=== PATIENT | female | born 1985 | race Caucasian/White ===

== ENCOUNTER 2025-07-27 15:54 | Emergency (ER) | payer OTHER, SELFPAY ==
[2025-07-27 15:56] VITALS: BP 126/80
--- NOTE | 2025-07-27 16:15 | ED.GENMED ---
History of Present Illness
General
Chief Complaint: Skin Surface Trauma
Source: patient
Time Seen by Provider: 07/27/25 16:06
History of Present Illness
History of Present Illness:
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 She notes that this happened approximately 1 hour ago. She is unsure of her tetanus status but would prefer to
check with her primary care doctor tomorrow instead of receiving here. She denies numbness, tingling, or other injury.
Past History
Past History
ED Past Medical History: Other (IBS)
ED Past Surgical History: Gynecological
Social History
Tobacco: Smoker
Alcohol: Occasional
Drug: None
Living: with family
Family History
Family History: Other (Noncontributory)
Phy Exam
Physical Exam
Physical Exam:
GENERAL: Alert , in no apparent distress
EYE: pupils equal and round
NECK: Supple
ENT: o/p clr, mmm.
CARDIAC: Regular rate and rhythm .
LUNGS: Clear breath sounds bilaterally, no acute respiratory distress, no wheezes/rales/rhonchi
ABDOMEN: Soft, without focal tenderness, no r/g
NEUROLOGICAL: Alert and oriented, no focal neuro deficits
SKIN: Warm and dry, 3 cm laceration linear noted at the right hands at the area between the thumb and first finger extending from the dorsal aspect to the palmar aspect.
MUSCULOSKELETAL: No edema, well perfused.
PSYCH: Normal and appropriate interaction.
Course
Vital Signs
Initial and Last Documented VS:
Initial Vital Signs
Temp Pulse Resp BP Pulse Ox
98.1 F 59 18 126/80 100
07/27/25 15:56 07/27/25 15:56 07/27/25 15:56 07/27/25 15:56 07/27/25 15:56
Last Documented Vital Signs
Temp Pulse Resp BP Pulse Ox
98.1 F 59 18 126/80 100
07/27/25 15:56 07/27/25 15:56 07/27/25 15:56 07/27/25 15:56 07/27/25 16:17
Procedures
Laceration Closure
Right Hand:
Status of Wound: clean
Size of Wound in cm: 3
Description of Wound Edges: sharp
Preparation: cleaned with saline
Anesthesia: 1% Lidocaine with epi
Revision/Debridement: routine- no revision
Wound exploration: explored to base- no FB and no tendon involvement
Type of Closure: single layer closure
Skin Closure Material: 4-0 nylon
Number of sutures: 8
Additional information:
Wound examined through full range of motion, no foreign body noted, no tendon or joint injury visualized. Patient has intact sensation and motor strength.
*Pulse Oximetry
SaO2: 100
Oxygen Mode of Delivery: Room air
Patient hypoxic: no
*Critical Care Note
Total Time (30-74mins, 75-104mins- exclusive of procedures): Not Applicable
Update Note
Update Note:
Patient presents to the Emergency Department with ____laceration
Number and Complexity of Problems Addressed at the Encounter
� Chronic conditions affecting care:
� Acute Exacerbation and/or Progression of Chronic Illness:
� Differential Diagnosis includes: But not limited to laceration, abrasion, tendon injury, joint injury, etc. etc.
Amount and/or Complexity of Data to be Reviewed and Analyzed
� I performed an independent evaluation of and my interpretation is:
EKG:
CT:
Xrays:
Laboratory Studies:
Other:
� Review of other/old records reveals:
� Clinical information was obtained by an independent historian:
� Prescriptions/Medications Considered but not given:
� Further testing considered but not performed:
Risk of Complications and/or Morbidity or Mortality of Patient Management
� Social determinants of health affecting care:
� Discussion with other providers (PCP, Hospitalists, Consultants, etc):
� Escalation of care including admission/observation vs risk of discharge considered: Laceration repaired without difficulty, advised patient regarding wound management, removal of sutures with her primary care doctor, reasons
return to the ER, etc.
ED Attending Note
-
Portions of this chart may have been created with voice recognition software.� Occasional wrong word or��sound alike� substitutions may have occurred due to the inherent limitations of voice recognition software.
Discharge Plan
Departure
Patient Disposition: Home (Routine Discharge)
Date of Disposition: 07/27/25
Time of Disposition: 16:40
Patient with high blood pressure during this ER visit?: Yes
Condition: Good
Discharge Problem:
Laceration
Instructions: Laceration Repair With Stitches (DC), BLOOD PRESSURE
Prescriptions:
No Action
No Current Medications
0
Activity Restrictions/Additional Instructions:
PLEASE CHECK WITH YOUR DOCTOR REGARDING WHETHER YOU NEED A TETANUS VACCINE. IF YOU DEVELOP REDNESS, WARMTH, SWELLING, PAIN, DRAINAGE, FEVER, NUMBNESS, OR OTHER WORRISOME SIGNS, PLEASE RETURN TO THE ER IMMEDIATELY. YOU HAD 8 SUTURES PLACED, THEY
SHOULD BE REMOVED BY YOUR DOCTOR IN 10 TO 12 DAYS.
Interventions
Interventions:
*Risk Screen - Suicide Last Done: 07/27/25 15:56
*General Assessment Last Done: 07/27/25 15:56
*Neglect/Abuse Screening Last Done: 07/27/25 16:32
*ED- Fall Risk Assessment Last Done: 07/27/25 16:32
*ED COVID-19 Vaccine History Last Done: 07/27/25 15:56
*ED Influenza Vaccine History Last Done: 07/27/25 15:56
*Nursing Disposition Last Done: 07/27/25 16:57
ED-Skin Assessment Last Done: 07/27/25 16:33
Discharge Date and Time
Discharge Date/Time: 07/27/25 16:58
Print Language: EGYPTIAN
== END 2025-07-27 16:58 | disposition home or self-care (01) ==
LOC: EMR 15:54
PROVIDERS: EMERGENCY PHYSICIAN Emergency Medicine
DX: S61.411A Laceration without foreign body of right hand, initial encounter (principal); W26.8XXA Contact with other sharp object(s), not elsewhere classified, initial encounter; R03.0 Elevated blood-pressure reading, without diagnosis of hypertension; K58.9 Irritable bowel syndrome, unspecified; F17.200 Nicotine dependence, unspecified, uncomplicated
CPT/HCPCS: 99282; 12002